=== PATIENT | female | born 1950 | race Caucasian/White ===

== ENCOUNTER 2022-04-20 08:15 | Day surgery (SDC) | payer MEDICARE, OTHER ==
[~2022-04-20] VITALS: Ht 170.2 cm; Wt 82.5 kg
[2022-04-20] MEDS ORDERED: BROMELAINS500 MG (08:33)
[2022-04-20] MEDS ORDERED: CALCIUM 1,0001 EAC1 (08:33)
[2022-04-20] MEDS ORDERED: Magnesium30 MG (08:34)
[2022-04-20] MEDS ORDERED: FISH OIL 1,2001 EAC7 (08:34)
[2022-04-20] MEDS ORDERED: Lutein6 MG (08:34)
[2022-04-20] MEDS ORDERED: LEVSOD75 (08:34)
== END 2022-04-20 10:48 | disposition home or self-care (01) ==
LOC: ORSCSDS 08:15
PROVIDERS: Internal Medicine Gastroenterology
PROC: 0DBL8ZX Excision of Transverse Colon, Via Natural or Artificial Opening Endoscopic, Diagnostic (ICD-10-PCS; principal; 2022-04-20 09:30)
PROC: 0DBK8ZX Excision of Ascending Colon, Via Natural or Artificial Opening Endoscopic, Diagnostic (ICD-10-PCS; principal; 2022-04-20 09:30)
PROC: 0DBM8ZX Excision of Descending Colon, Via Natural or Artificial Opening Endoscopic, Diagnostic (ICD-10-PCS; principal; 2022-04-20 09:30)
DX: Z12.11 Encounter for screening for malignant neoplasm of colon (principal); Z86.010 Personal history of colon polyps; Z80.0 Family history of malignant neoplasm of digestive organs; D12.3 Benign neoplasm of transverse colon; D12.2 Benign neoplasm of ascending colon; K63.5 Polyp of colon; K64.4 Residual hemorrhoidal skin tags; Z79.899 Other long term (current) drug therapy
CPT/HCPCS: 88305; J2704; J7120

== ENCOUNTER 2022-06-09 10:09 | Day surgery (SDC) | payer MEDICARE, OTHER ==
[~2022-06-09] VITALS: Ht 170.2 cm; Wt 79.0 kg
[~2022-06-09 10:09] MED LIST: BROMELAINS500 MG PO; CALCIUM 1,0001 EAC1 PO; CETI5 PO; DERMACINRX FOL1 EAC2 PO; FISH OIL 1,2001 EAC7 PO; HAWTHORN BERRY PO; LEVSOD75 PO; Lutein6 MG PO; Magnesium30 MG PO; TURMERIC500 M2 PO; WELLCOVORIN PO; WOMENS MULTIVITAMIN PO
--- NOTE | 2022-06-09 11:23 | NUR ---
FIRST IV ATTEMPT IN [facility] FAILED. VEIN BLEW. PT TOW. COBAN AND 2X2'S PLACED OVER SITE. Ambulatory in Day Surgery WITH STEADY GAIT. Surgical site prepped with 2% Chlorhexidine cloth wipe. History, Chart, Medications and Allergies reviewed before start of procedure. Lungs clear T/O to Auscultation. Patient confirms NPO status and agrees with scheduled surgery. Pre-Op teaching done. Pt verbalizes understanding. Patient States Post-Procedure ride home has been arranged WITH .
--- NOTE | 2022-06-09 14:15 | NUR ---
PATIENT ARRIVED TO UNIT VIA BED. X1 AQUACEL TO RIGHT KNEE WITH POLAR PACK IN [place]. PATIENT UNABLE TO WIGGLE TOES AT THIS TIME, SENSATION AT HIPS, NOTHING BELOW CURRENTLY. PATIENT DENIES PAIN. DENIES N/V. VSS ON RA. ORIENTED TO ROOM & UNIT. CALL LIGHT IN REACH.
--- NOTE | 2022-06-09 19:18 | NUR ---
SHIFT SUMMARY POD 0 R TKA. NO ACUTE CHANGES SINCE ARRIVAL TO UNIT. AQUACEL & POLAR PACK TO RIGHT KNEE. PAIN MANAGED WELL PER EMAR. EATING, DRINKING, & VOIDING WELL. AMBULATES WELL W/ 1P SBA ASSIST W/ FWW & GB. UP TO CHAIR FOR DINNER. CALLS APPROPRIATELY, IN REACH. WILL REPORT TO ONCOMING RN.
--- NOTE | 2022-06-10 04:27 | NUR ---
SHIFT SUMMARY: PODx1 R TKA. EATING, DRINKING, VOIDING. AMB USING FWW AND GAIT BELT TO THE BR/BSC. PAIN WELL MANAGED WITH EMAR ORDERS. TOLERATING PO FLUIDS, DENIED NAUSEA. POLAR PACK REMAINS IN PLACE, X1 AQUACEL REMAINS C/D/I AT THIS TIME. PLANS TO WORK WITH PT THIS AM AND POTENTIALLY DC HOME. CALLS APPROPRIATELY. RESTING AT THIS TIME WITH CALL LIGHT IN REACH. WILL GIVE REPORT TO DAY TIME RN.
[2022-06-10 05:02] LABS: BASOPHILS ABSOLUTE AUTO 0.01 K/mm3 (0.00-0.23); BASOPHILS PERCENT AUTO 0 % (0-2); EOSINOPHILS PERCENT AUTO 0 % (0-6); Hematocrit 39.2 % (33.0-51.0); Hemoglobin 13.2 g/dL (11.5-16.0); IMMATURE GRAN ABSOLUTE AUTO 0.03 K/mm3 (0.00-0.10); IMMATURE GRAN PERCENT AUTO 0 % (0-1); LYMPHOCYTES ABSOLUTE AUTO 0.56 K/mm3 (0.84-5.20); LYMPHOCYTES PERCENT AUTO 5 % (21-46); MONOCYTES ABSOLUTE AUTO 0.53 K/mm3 (0.16-1.47); MONOCYTES PERCENT AUTO 5 % (4-13); Mean Corpuscular HGB 30.3 pg (26.0-34.0); Mean Corpuscular HGB Conc 33.7 g/dL (31.5-36.5); Mean Corpuscular Volume 90 fL (80-100); Mean Platelet Volume 12.9 fL (9.1-12.4); NEUTROPHILS PERCENT AUTO 90 % (41-73); Platelet Count 150 K/mm3 (150-400); RDW Coefficient Variation 12.8 % (11.7-14.2); Red Blood Cell Count 4.35 M/mm3 (3.80-5.20); White Blood Cell Count 10.93 K/mm3 (4.00-11.30)
[2022-06-10 05:27] LABS: Bun/Creatinine Ratio 15.8 (12.0-20.0); Calcium, Blood 8.8 mg/dL (8.5-10.1); Creatinine, Blood 0.76 mg/dL (0.40-1.00); Magnesium, Blood 2.2 mg/dL (1.6-2.4); Potassium, Blood 4.1 mmol/L (3.5-5.5)
[2022-06-10] MEDS ORDERED: ACET500 PO (07:01)
[2022-06-10] MEDS ORDERED: OXYC5 PO (07:02)
--- NOTE | 2022-06-10 10:11 | NUR ---
DISCHARGE PATIENT CLEARED THERAPY WELL. AMBULATING W/O DIFFICULTY W/ FWW & GB. PAIN MANAGED WELL PER EMAR. EATING, DRINKING, & VOIDING WELL. DISCUSSED DISCHARGE INSTRUCTIONS AND SENT WITH PATIENT. POLAR PACK & AQUACEL DRESSINGS ALSO SENT WITH PATIENT. ESCORTED OUT VIA W/C.
== END 2022-06-10 10:40 | disposition home or self-care (01) ==
LOC: ORSCMMR 10:09 → SURS 10:09 → ORSCMMR 10:11 → ORD 11:30 → SURS 14:32 → ORSCMMR 06-10 10:40
PROVIDERS: Orthopaedic Surgery
PROC: 0SRC0JA Replacement of Right Knee Joint with Synthetic Substitute, Uncemented, Open Approach (ICD-10-PCS; principal; 2022-06-09 11:30)
PROC: 8E0Y0CZ Robotic Assisted Procedure of Lower Extremity, Open Approach (ICD-10-PCS; principal; 2022-06-09 11:30)
DX: M17.11 Unilateral primary osteoarthritis, right knee (principal); E03.9 Hypothyroidism, unspecified; Z79.899 Other long term (current) drug therapy
CPT/HCPCS: 27447; 0055T; S2900; 36415; 73560-RT; 80048; 83735; 85025; 97110; 97116; 97161; 97530; A9270; C1776; J0171; J0690; J0735; J1100; J1885; J2250; J2405; J2704; J2795; J3010; J7120

== ENCOUNTER → 2022-09-15 | Outpatient (CLI) | payer MEDICARE, OTHER ==
[~2022-09-15] MED LIST changes: +ACET500 PO; +OXYC5 PO
== END | disposition home or self-care (01) ==
LOC: LAB 11:14 → LAB SHORT 11:14
DX: R30.0 Dysuria (principal)
CPT/HCPCS: 87077; 87086; 87147; 87186

== ENCOUNTER → 2024-05-14 | Outpatient (CLI) | payer MEDICARE | LOC: LAB 09:55 → LAB SHORT 09:55 | DX: N39.0 Urinary tract infection, site not specified (principal); R31.9 Hematuria, unspecified | CPT/HCPCS: 87077; 87086; 87186 ==